=== PATIENT | male | born 1985 | race American Indian/Alaskan Native ===

== ENCOUNTER 2019-08-13 22:18 | Emergency (ER) | payer OTHER ==
[2019-08-14] MEDS ORDERED: TETANUS,DIPH,PERTUSS(ACELL) VACCINE 0.5 ML SYRINGE IM ONE (02:23)
[2019-08-14] MEDS ORDERED: LIDOCAINE-MPF (1%) 10 MG/1 ML VIAL 5 ML INFILTRATI ONE (02:23)
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
[2019-08-14] MEDS ORDERED: ACETAMINOPHEN 500 MG TAB PO ONE (02:28)
[2019-08-14 04:33] VITALS: BP 164/94
== END 2019-08-14 04:45 | disposition home or self-care (01) ==
LOC: ED 22:18
DX: S01.112A Laceration without foreign body of left eyelid and periocular area, initial encounter (principal); M54.2 Cervicalgia; M54.9 Dorsalgia, unspecified; F17.200 Nicotine dependence, unspecified, uncomplicated; V49.49XA Driver injured in collision with other motor vehicles in traffic accident, initial encounter; Y93.89 Activity, other specified; Y92.410 Unspecified street and highway as the place of occurrence of the external cause; Y99.8 Other external cause status
CPT/HCPCS: 90471; 90715

== ENCOUNTER 2019-08-16 17:33 | Emergency (ER) | payer SELFPAY ==
[2019-08-16 17:43] VITALS: BP 160/98
== END 2019-08-17 01:25 | disposition left against medical advice (07) ==
LOC: ED 17:33
DX: R51 Headache (principal); Z53.21 Procedure and treatment not carried out due to patient leaving prior to being seen by health care provider
CPT/HCPCS: 93005; 93010